=== PATIENT | female | born 1990 | race Two or more races ===

== ENCOUNTER 2017-02-17 14:06 | Emergency (ER) | payer BC, OTHER ==
[~2017-02-17] VITALS: Ht 157.5 cm; Wt 73.0 kg
[2017-02-17 14:22] VITALS: BP 118/73
== END 2017-02-17 18:21 | disposition left against medical advice (07) ==
LOC: ER 18:08
DX: Z53.21 Procedure and treatment not carried out due to patient leaving prior to being seen by health care provider (principal)